=== PATIENT | male | born 1980 | race Caucasian/White ===

== ENCOUNTER 2021-10-10 14:27 | Emergency (ER) | payer OTHER, SELFPAY ==
--- NOTE | ~2021-10-10 | US_ITS ---
EXAMINATION: US VENOUS ULTRASOUND WITH DOPPLER LOWER EXTREMITY, LEFT CLINICAL INFORMATION: Pain. COMPARISON: None. TECHNIQUE: Ultrasound of the deep veins is performed from the hip to the calf with compression sonography and color and pulse Doppler assessment. Spectral analysis with color-flow imaging is performed. FINDINGS: There is occlusive thrombosis of the left popliteal vein which is noncompressible and lacks color flow on color Doppler. The visualized common femoral vein, superficial femoral vein, profunda femoral vein and the trifurcation region shows no evidence of deep venous thrombosis. There is no significant popliteal fossa cyst. There are a few prominent but benign-appearing left inguinal lymph nodes, which are likely reactive. US/US venous duplex LE LT IMPRESSION: Occlusive venous thrombosis in the left popliteal vein. This critical result was discussed with FERMIN Saucedo at 10/10/2021 8:40 PM and it was ascertained that the content and urgency of the report was understood at the time of direct communication.
[2021-10-10 15:14] VITALS: BP 148/80; PULSE 108; RESP 18; TEMP 36.8; O2SAT 97; BMI 33.0
--- NOTE | 2021-10-10 20:57 | ED_ITS ---
HPI - Extremity Problem General Chief complaint: Extremity Problem Stated complaint: BLOOD CLOTS L LEG Time Seen by Provider: 10/10/21 18:09 Source: patient Mode of arrival: ambulatory Limitations: no limitations History of Present Illness HPI Narrative: 41-year-old male presents for worsening left calf pain after being diagnosed with a DVT in his left calf 4 days ago. Patient has had 10 days of left calf pain and originally thought he just pulled a muscle. 6 days ago the pain worsened, and 4 days ago patient went to [facility]. There he was diagnosed with it DVT in his left popliteal vein, per patient's report, and put on Xarelto, 15 mg b.i.d.. He felt his left calf was getting better, but now feels since yesterday it has been more painful, red, swollen. It appears this clot is unprovoked, sister and aunt have a history of blood clots. Related Data Previous Rx's Medication Instructions Recorded oxycodone 5 mg capsule 5 mg PO TID PRN #14 cap 10/11/21 oxycodone 5 mg tablet 5 mg PO TID PRN #14 tab 10/11/21 Allergies Allergy/AdvReac Type Severity Reaction Status Date / Time No Known Allergies Allergy Verified 10/10/21 15:14 Review of Systems Constitutional: Constitutional: Denies body ache(s), Denies chills, Denies fatigue, Denies fever(s), Denies headache(s), Denies malaise and Denies weakness Eyes: Eyes: Denies diplopia ENT: Denies vertigo, Denies dizziness, Denies otalgia, Denies headache(s), Denies mouth pain, Denies post nasal drip, Denies sinus pain, Denies sinus pressure, Denies sore throat and Denies throat swelling Cardiovascular: Cardiovascular: Denies chest pain, Denies syncope, Reports leg edema, Denies lightheadedness, Denies Loss of Consciousness, Denies palpitations and Denies dyspnea Respiratory: Respiratory: Denies chest congestion, Denies cough and Denies dyspnea Gastrointestinal: Gastrointestinal: Denies abdominal pain, Denies hematochezia, Denies constipation, Denies diarrhea and Denies vomiting Integumentary/Breasts: Comments: Swelling redness warmth left calf Neurologic: Denies confusion, Denies vertigo, Denies dizziness, Denies syncope, Denies headache(s) and Denies weakness Psychiatric: Psychiatric: Denies anxiety, Denies confusion and Denies depression Endocrine: Endocrine: Denies fatigue and Denies palpitations Allergic/Immunologic: Allergic/Immunologic: Denies throat swelling PMFSH Social History Social History Alcohol intake: current Patient Tobacco Use Status: Never used Tobacco Use of substances other than those prescribed or required for medical reasons: No Advance Directives: No Physical Exam Vital Signs: Vital Signs: Last Vital Signs Temp 98.2 F 10/10/21 15:14 Pulse 108 H 10/10/21 15:14 Resp 18 10/10/21 15:14 BP 148/80 H 10/10/21 15:14 Pulse Ox 97 10/10/21 15:14 Body Mass Index 33.0 Const: General: No confusion Nutritional Appearance: well nourished Orientation/consciousness: No confusion Limitations: no limitations Eyes: Conjunctivae: conjunctivae normal Pupils: Equal, round and reactive pupils present EOM: EOMs intact bilaterally Neck: Neck: Yes full ROM, Yes no lymphadenopathy and Yes supple Resp: Effort & Inspection: normal respiratory effort and able to speak in complete sentences Auscultation: clear to auscultation bilaterally, no crackles, no rales, no rhonchi and no wheezes Cardio: Rate: regular rate Rhythm: regular rhythm Heart sounds: S1 normal heart sound present and S2 normal heart sound present GI: Inspection: Yes normal to inspection Palpation (GI): Soft to palpation, nontender, no guarding and not rigid Percussion: Yes normal to percussion Auscultation: normal bowel sounds Skin: Other: Swelling, redness, warmth, left calf Neuro: General: No confusion Cranial nerves: Yes Equal, round and reactive pupils present Extrem: Left lower extremity: full ROM, normal capillary refill and lower leg Details: erythema Location: of the proximal lower leg, tenderness Location: of the posterior calf and localized swelling Location: of the proximal lower leg and of the mid lower leg Psych: Appearance: grossly normal Affect: normal affect Attitude: cooperative Thought process: Normal thought process present Course Course Course Narrative: Ultrasound here today shows complete occlusion of left popliteal vein. Has spoke to Dr. Hu, vascular surgeon, to discuss if this is a failure of Xarelto after 4 days. He stated it is not a failure due to no access to previous ultrasound done at [facility]. He stated patient should stay on Xarelto, and elevate his leg, use compression stocking. I relayed this information to patient, patient has an appointment with his PCP in 5 days, told patient to keep this appointment, provided patient with pain medication. All questions of patient were answered to his satisfaction. Return precautions were given. Discharge Plan Discharge Clinical Impression: Deep vein thrombosis of lower extremity Qualifiers: Affected thrombotic vein of extremity: popliteal Chronicity: acute Laterality: left Qualified Code(s): I82.432 - Acute embolism and thrombosis of left popliteal vein Patient Disposition: Home, Self-Care Instructions: Deep Vein Thrombosis (ED) Additional Instructions: Please continue xeralto as prescribed. Please keep your appointment with your primary care provider. Please walk as much as possible, use compression stockings, and elevate your leg when you are not walking. He may take the compression stocking off at night. As we discussed, if the redness swelling and pain extends into her thigh be on your knee, or if you have shortness of breath chest pain, you must return to the emergency room immediately. Do not be afraid to treat your pain, Tylenol and oxycodone do not interact with xeralto; this is a very painful condition Prescriptions: New oxycodone 5 mg capsule 5 mg PO TID PRN (Reason: pain) Qty: 14 RF: 0 oxycodone 5 mg tablet 5 mg PO TID PRN (Reason: pain) Qty: 14 RF: 0
[2021-10-11] MEDS: oxyCODONE HCl Immed Release 5 MG TABLET PO (00:58)
--- NOTE | 2021-10-11 01:44 | PC.NURSE ---
The pt is discharged at this time. I assumed care of him at 1999 at which time he presented to [facility] stating he had been waiting for 7 hours (he states he believes it was thought that he had left the waiting room when, in fact, he was at ultrasound and per the pt he was taken out of the queue to get into the main department, hence the lengthy wait). On arrival to [facility] he is alert and oriented x 3, without chest pain or shortness of breath. He has no complaints with the exception of pain behind his left knee,. He states he was diagnosed with DVT on Thursday and today the pain that he has had since Thursday in his LLE is worsening. He waited patiently in the [facility] despite an 11 hour ER visit and was discharged at this time. He verbalized an understanding of all DC orders and ambulated out of the department independently and with steady gait.
== END 2021-10-11 01:57 | disposition home or self-care (01) ==
PROVIDERS: Emergency Provider Emergency Medicine
DX: I82.432 Acute embolism and thrombosis of left popliteal vein (principal); M79.662 Pain in left lower leg; Z86.718 Personal history of other venous thrombosis and embolism; Z79.01 Long term (current) use of anticoagulants
CPT/HCPCS: 93971; 99284

== ENCOUNTER → 2021-10-22 13:23 | Outpatient (BNVA) | payer OTHER, SELFPAY | PROVIDERS: PCP Nurse Practitioner Family; Visit Provider Surgery Vascular Surgery | DX: I82.432 Acute embolism and thrombosis of left popliteal vein (principal); Z79.01 Long term (current) use of anticoagulants | CPT/HCPCS: 99202 ==

== ENCOUNTER → 2022-07-17 10:55 | Outpatient (BNV) | payer OTHER, SELFPAY | PROVIDERS: PCP Nurse Practitioner Family; Visit Provider Internal Medicine Medical Oncology | DX: I82.402 Acute embolism and thrombosis of unspecified deep veins of left lower extremity (principal) | CPT/HCPCS: 99204; 99213 ==

== ENCOUNTER 2022-08-22 09:19 | Outpatient (REF) | payer OTHER, SELFPAY ==
--- NOTE | ~2022-08-22 | US_ITS ---
EXAMINATION: US VENOUS ULTRASOUND WITH DOPPLER LOWER EXTREMITY, LEFT CLINICAL INFORMATION: Left leg DVT, follow-up. COMPARISON: Left lower extremity deep venous thrombosis. TECHNIQUE: Ultrasound of the deep veins is performed from the hip to the calf with compression sonography and color and pulse Doppler assessment. Spectral analysis with color-flow imaging is performed. FINDINGS: The left popliteal vein shows intraluminal linear hypoechoic/echogenic foci. The left common femoral, femoral, femoral, femoral and calf veins are patent. No left popliteal cyst. The subcutaneous soft tissues are unremarkable. US/US venous duplex LE LT IMPRESSION: Significant interval decrease in thrombus burden at the level the left popliteal vein. Intraluminal linear foci suggest chronic residual thrombus however, correlation with physical exam is recommended. If the patient is acutely symptomatic, short-term repeat ultrasound is recommended as clinically indicated to better assess for more acute change.
== END 2022-08-22 09:20 | disposition home or self-care (01) ==
LOC: HO.US 09:19
PROVIDERS: Visit Provider Internal Medicine Medical Oncology
DX: I82.402 Acute embolism and thrombosis of unspecified deep veins of left lower extremity (principal)
CPT/HCPCS: 93971

== ENCOUNTER 2023-07-05 13:19 | Emergency (ER) | payer OTHER, SELFPAY ==
--- NOTE | ~2023-07-05 | US_ITS ---
EXAMINATION: US RETROPERITONEAL LIMITED (RENAL ONLY) CLINICAL INFORMATION: Left flank pain. COMPARISON: None available. TECHNIQUE: Grayscale and color imaging of the kidneys FINDINGS: RIGHT KIDNEY: 10.7 x 4.3 x 5.7 cm (SAG x AP x TRV). The kidney is normal in size, contour, and echogenicity. Renal cortical thickness is normal. No calculi or focal parenchymal lesions. No hydronephrosis. LEFT KIDNEY: 11 x 4.4 x 4.8 cm (SAG x AP x TRV). The kidney is normal in size, contour, and echogenicity. Renal cortical thickness is normal. No calculi or focal parenchymal lesions. No hydronephrosis. US/US renal BI IMPRESSION: Normal renal ultrasound..
[2023-07-05 13:47] VITALS: BP 157/88; PULSE 91; RESP 16; TEMP 36.7; O2SAT 95; BMI 31.9
--- NOTE | 2023-07-05 13:49 | ED.GENADULT ---
HPI - General Adult General Chief complaint: Abdominal Pain Stated complaint: Abd pain? Time Seen by Provider: 07/05/23 15:38 Source: patient and family Mode of arrival: ambulatory Limitations: no limitations History of Present Illness HPI narrative: Patient is a 43-year-old male with history of DVTs, currently on Xarelto presenting to the emergency department with complaint of left flank pain since Thursday or Thursday which has now began to radiate around to left lower quadrant of abdomen. Rates pain at 6 or 7/10, is intermittent. He denies any nausea, vomiting, diarrhea, constipation. He denies any dysuria, hematuria or other urinary symptoms. He denies any fevers. He denies any bright red blood in stool or dark, tarry stool. He denies heavy lifting, fall, or other trauma. He denies any saddle anesthesia or bowel or bladder incontinence. MD complaint: left flank pain Onset (ago): day(s) Location: back and abdomen Radiation: abdomen Severity: moderate Severity scale (1-10): 7 Quality: sharp Pain Consistency: intermittent Associated symptoms: denies other symptoms Treatments prior to arrival: none Related Data Home Medications Medication Instructions Recorded Confirmed ruxolitinib 1.5 % topical cream 5 appl topical DAILY 03/27/23 03/27/23 (Opzelura) Previous Rx's Medication Instructions Recorded rivaroxaban 20 mg tablet 20 mg PO DAILY #30 tabs 07/17/22 rivaroxaban 20 mg tablet (Xarelto) 20 mg PO DAILY #90 tabs 11/27/22 rivaroxaban 10 mg tablet 10 mg PO DAILY #90 tabs 04/03/23 cyclobenzaprine 5 mg tablet 5 mg PO TID PRN muscle spasm #12 07/05/23 tabs lidocaine 5 % topical patch 1 patch topical DAILY #15 ea 07/05/23 Allergies Allergy/AdvReac Type Severity Reaction Status Date / Time ibuprofen Allergy Unknown Verified 07/05/23 15:38 Review of Systems Review of Systems: As per HPI. Yes all other systems are reviewed and are negative Constitutional: Constitutional: Reports as per HPI [facility] Past Medical History Surgical History History of hernia surgery Family History Family History Father Lung cancer Social History Social History Household Members: Spouse Housing: Apartment Are you a primary nurse healthcare manager to a significant other at home: No Do you presently have visiting nurse or other home services: No Alcohol intake: current Patient Tobacco Use Status: Former Tobacco user Quit Date: 03/2022 Second Hand Smoke Exposure: No Advance Directives: No Advance Directives Information Provided: Yes service: No Current occupational status: employed Physical Exam ED Vital Signs: Vital Signs - 24 hr 07/05/23 13:47 Temperature 98.0 F Pulse Rate 91 Respiratory Rate 16 Blood Pressure 157/88 H Pulse Oximetry 95 Oxygen Delivery Method Room Air BMI result Body Mass Index 31.9 Vital signs have been reviewed and appear to be correct. Blood pressure elevated. Heart rate normal. Respiratory rate normal. Temperature normal. Oxygen saturation normal. Const General: cooperative, healthy appearing and no acute distress Orientation/consciousness: oriented to person, oriented to place, oriented to time and patient oriented x3 Limitations: no limitations HENMT Head: Yes normocephalic and Yes atraumatic Ears: external ears normal General nose exam: Normal external nose present Face and sinus: Yes face symmetric Mouth: oropharynx normal and moist mucous membranes Throat: Yes uvula midline Eyes Pupils: Equal, round and reactive pupils present Neck Neck: Yes normal visual inspection and Yes supple Resp Effort & Inspection: normal respiratory effort and able to speak in complete sentences Auscultation: clear to auscultation bilaterally Cardio Rate: regular rate Rhythm: regular rhythm Heart sounds: S1 normal heart sound present and S2 normal heart sound present GI Inspection: Yes normal to inspection Palpation (GI): Soft to palpation, nontender, no guarding and No Rebound tenderness present Auscultation: normoactive bowel sounds Other: no flank ecchymosis General: Yes no CVA tenderness Back/Spine/Pelvis Back: no CVA tenderness Skin General skin exam: elasticity normal and turgor normal Neuro General: oriented to person, oriented to place, oriented to time, patient oriented x3, moves all extremities, no focal motor deficits and CN's II-XI intact bilaterally Cranial nerves: Yes Equal, round and reactive pupils present Cognition (Neuro): normal cognition Extrem General: Yes full ROM, Yes no pedal edema and Yes no calf tenderness Psych Mental Status: mental status grossly normal Affect: normal affect Thought process: Normal thought process present Course Course Course Narrative: RME: 43 yold male presents to the ED for left flank pain and left lower quadrant abdominal pain for the past 3 days without any symptoms. labs ordered Medical Decision Making Medical Decision Making [facility] Narrative: Patient is a 43-year-old male with history of DVTs, currently on Xarelto presenting to the emergency department with complaint of left flank pain since Thursday or Thursday which has now began to radiate around to left lower quadrant of abdomen. On exam patient is awake, A+Ox3, VS WNL, afebrile, normal neurological exam without focal deficits, abdomen soft and nontender, normoactive bowel sounds, no palpable hernia, no CVA tenderness, no flank ecchymosis. Given reported symptoms and physical exam findings, initial differential includes UTI/pyelo, renal colic, muscle strain. No red flag findings on exam concerning for cauda equina or spinal epidural abscess. Labs notable for no leukocytosis, no evidence of anemia, electrolytes WNL, no blood in urine. D-dimer within normal limits, feel blood clot as cause of symptoms is unlikely. U/S notable for normal renal ultrasound. My interpretation is in agreement with the radiologist's interpretation. Feel symptoms are likely related to lumbar strain at this time. Will discharge patient home with prescription for cyclobenzaprine, instructed him to follow-up with his primary care provider this week. Return precautions discussed at bedside. Advised patient he can alternate Tylenol and ibuprofen. Patient verbalized understanding of and agreement with plan. Differential Diagnosis Differential Diagnoses: The differential diagnosis associated with the presentation includes As per MDM. Admission/Observation Consideration of admission/observation: Escalation of care including admission/observation considered Lab Data [facility] Lab Attestation statement: I reviewed the patient's lab results. As per [facility]. 07/05/23 15:14 07/05/23 14:41 Labs: Lab Results 07/05/23 07/05/23 07/05/23 Range/Units 14:41 14:41 14:41 WBC (4.8-10.8) X10*3/uL RBC (4.60-5.80) X10*6/uL Hgb (14.0-18.0) g/dl Hct (42.0-52.0) % MCV (80.0-98.0) fL MCH (27.0-33.0) pg MCHC (31.0-36.0) g/dl RDW (11.0-16.0) % Plt Count (160-400) X10*3/uL MPV (9.4-12.4) fL Immature Gran % (Auto) (0.0-0.4) % Neut % (Auto) (45-73) % Lymph % (Auto) (20-40) % Caroline % (Auto) (2-11) % Eos % (Auto) (0-4) % Baso % (Auto) (0-2) % Lymph # (Auto) (1.2-4.9) X10*3/uL Caroline # (Auto) (0.1-1.2) X10*3/uL Eos # (Auto) (0.0-0.4) X10*3/uL Baso # (Auto) (0.0-0.2) X10*3/uL Abs Immat Gran (auto) (0.00-0.03) X10*3/uL Absolute Neuts (auto) (2.0-8.3) x10*3/uL Absolute Nucleated RBC (0.0-0.012) X10*3/uL Nucleated RBC % (auto) (0.0-0.2) /100WBC PT 13.5 H (11.1-13.3) SEC INR 1.1 (0.9-1.1) APTT 36.2 (26.0-36.4) SEC D-Dimer High Sensitivty 188 NG/ML Sodium 142 (135-145) mmol/L Potassium 4.0 (3.3-5.1) mmol/L Chloride 107 (96-108) mmol/L Carbon Dioxide 26 (22-29) mmol/L Anion Gap 13 (12-20) BUN 14 (9-16) mg/dL Creatinine 1.03 (0.5-1.4) mg/dL Estim Creat Clear Calc 110.1 Estimated GFR > 60 Random Glucose 85 (60-115) mg/dL Calcium 9.6 (8.4-10.2) mg/dL Total Bilirubin 0.5 (0.0-1.0) mg/dL AST 13 (5-37) U/L ALT 13 (0-40) U/L Alkaline Phosphatase 44 (39-117) U/L Total Protein 7.4 (6.5-8.0) g/dL Albumin 4.5 (3.5-5.0) g/dL Urine Color Yellow Urine Appearance Clear Urine pH 5.5 (5.0-9.0) Ur Specific [place] 1.025 (1.005-1.025) Urine Protein Negative (Neg-Trace) mg/dL Urine Glucose (UA) Negative (Negative) mg/dL Urine Ketones Trace (Negative) mg/dL Urine Blood Negative (Negative) Urine Nitrite Negative (Negative) Ur Leukocyte Esterase Negative (Negative) 07/05/23 Range/Units 15:14 WBC 9.6 (4.8-10.8) X10*3/uL RBC 5.13 (4.60-5.80) X10*6/uL Hgb 15.2 (14.0-18.0) g/dl Hct 45.2 (42.0-52.0) % MCV 88.1 (80.0-98.0) fL MCH 29.6 (27.0-33.0) pg MCHC 33.6 (31.0-36.0) g/dl RDW 13.0 (11.0-16.0) % Plt Count 236 (160-400) X10*3/uL MPV 9.8 (9.4-12.4) fL Immature Gran % (Auto) 0.2 (0.0-0.4) % Neut % (Auto) 57.6 (45-73) % Lymph % (Auto) 30.2 (20-40) % Caroline % (Auto) 9.7 (2-11) % Eos % (Auto) 1.7 (0-4) % Baso % (Auto) 0.6 (0-2) % Lymph # (Auto) 2.9 (1.2-4.9) X10*3/uL Caroline # (Auto) 0.9 (0.1-1.2) X10*3/uL Eos # (Auto) 0.2 (0.0-0.4) X10*3/uL Baso # (Auto) 0.1 (0.0-0.2) X10*3/uL Abs Immat Gran (auto) 0.02 (0.00-0.03) X10*3/uL Absolute Neuts (auto) 5.5 (2.0-8.3) x10*3/uL Absolute Nucleated RBC 0.000 (0.0-0.012) X10*3/uL Nucleated RBC % (auto) 0.0 (0.0-0.2) /100WBC PT (11.1-13.3) SEC INR (0.9-1.1) APTT (26.0-36.4) SEC D-Dimer High Sensitivty NG/ML Sodium (135-145) mmol/L Potassium (3.3-5.1) mmol/L Chloride (96-108) mmol/L Carbon Dioxide (22-29) mmol/L Anion Gap (12-20) BUN (9-16) mg/dL Creatinine (0.5-1.4) mg/dL Estim Creat Clear Calc Estimated GFR Random Glucose (60-115) mg/dL Calcium (8.4-10.2) mg/dL Total Bilirubin (0.0-1.0) mg/dL AST (5-37) U/L ALT (0-40) U/L Alkaline Phosphatase (39-117) U/L Total Protein (6.5-8.0) g/dL Albumin (3.5-5.0) g/dL Urine Color Urine Appearance Urine pH (5.0-9.0) Ur Specific [place] (1.005-1.025) Urine Protein (Neg-Trace) mg/dL Urine Glucose (UA) (Negative) mg/dL Urine Ketones (Negative) mg/dL Urine Blood (Negative) Urine Nitrite (Negative) Ur Leukocyte Esterase (Negative) Independent Interpretation I performed an independent interpretation of an: Ultrasound Interpretation: Normal renal ultrasound Radiology Impression Discussion of test interpretation with radiology: I have reviewed the radiologist's reading. Radiologist Impression: US/US renal BI IMPRESSION: Normal renal ultrasound.. Independent Historian Clinical information obtained from an independent historian. History obtained from or confirmed by: Spouse External Record Review External record reviewed: Inpatient record, Office record and Outpatient record Tests considered The following testing was considered but not selected: Considered CT abdomen pelvis, however, abdomen is soft and nontender in patient has no CVA tenderness. Prescription Management I considered prescription management with: Other (Cyclobenzaprine) Discharge Plan Discharge Clinical Impression: Strain of lumbar paraspinous muscle Patient Disposition: Home, Self-Care Instructions: Muscle Strain (DC), Low Back Strain (ED), Acute Low Back Pain (ED), Lower Back Exercises (ED) Additional Instructions: You were evaluated in the emergency department today for back pain. Your evaluation did not show signs of medical conditions requiring emergent intervention at this time. We recommended that you use ibuprofen or Tylenol per package directions every 6 hours as needed for pain. If necessary, you can alternate these medications so that you take one medication every 3 hours. For instance, at noon take ibuprofen, then at 3:00 p.m. take Tylenol, then at 6:00 p.m. take ibuprofen. You have been prescribed a muscle relaxer which you may take every 8 hours as needed for spasms. You have been prescribed 5% topical lidocaine patches which you can wear for up to 12 hours in a 24 hour period. Do not apply heat directly over the patches. Please schedule an appointment for follow-up with your primary care physician this week for further evaluation of your symptoms. Return to the emergency department if you experience worsening back pain, difficulty walking, fevers, numbness, tingling, incontinence, groin numbness or tingling, or any other concerning symptoms. Prescriptions: New cyclobenzaprine 5 mg tablet 5 mg PO TID PRN (Reason: muscle spasm) Qty: 12 0RF lidocaine 5 % adhesive patch,medicated 1 patch topical DAILY Qty: 15 0RF Rx Instructions: leave on most painful area for up to 12 hrs No Action rivaroxaban 20 mg Tablet 20 mg PO DAILY Qty: 30 4RF Rx Instructions: must administer with evening meal Xarelto 20 mg Tablet 20 mg PO DAILY Qty: 90 3RF Rx Instructions: must administer with evening meal Opzelura 1.5 % Cream 5 appl TOPICAL DAILY rivaroxaban 10 mg Tablet 10 mg PO DAILY Qty: 90 4RF Rx Instructions: for 35 days Interventions: ED Discharge Assessment Last Done: 07/05/23 17:43 Discharge Date/Time: 07/05/23 17:43
[2023-07-05 14:52] LABS: Appearance Urine Clear; Color Urine Yellow; Glucose Urine UA Negative (Negative); Leukocyte Esterase Urine Negative (Negative); Nitrite Urine Negative (Negative); PH 5.5 (5.0-9.0); Specific Gravity - Urine 1.025 (1.005-1.025); Urine Blood Negative (Negative); Urine Ketones Trace mg/dL (Negative); Urine Protein Negative (Neg-Trace)
[2023-07-05 14:59] LABS: INTERNATIONAL NORM RATIO 1.1 (0.9-1.1); Prothrombin Time 13.5 SEC (11.1-13.3)
[2023-07-05 15:01] LABS: Partial Thromboplastin Time 36.2 SEC (26.0-36.4)
[2023-07-05 15:10] LABS: Alanine Aminotransferase 13 U/L (0-40); Albumin Level 4.5 g/dL (3.5-5.0); Alkaline Phosphatase 44 U/L (39-117); Anion Gap 13 (12-20); Aspartate Amino Transferase 13 U/L (5-37); Bilirubin Total 0.5 mg/dL (0.0-1.0); Blood Urea Nitrogen 14 mg/dL (9-16); Calcium 9.6 mg/dL (8.4-10.2); Carbon Dioxide 26 mmol/L (22-29); Chloride 107 mmol/L (96-108); Creatinine Clr Calc Pharmacy 110.1; Estimated Glomerular Filt Rate > 60; Glucose Random 85 mg/dL (60-115); Sodium 142 mmol/L (135-145); Total Protein 7.4 g/dL (6.5-8.0)
[2023-07-05 15:19] LABS: MANUAL DIFF FLAG NO
[2023-07-05 15:23] LABS: Basophils Absolute Auto 0.1 X10*3/uL (0.0-0.2); Basophils Percent Auto 0.6 % (0-2); Eosinophils Absolute Auto 0.2 X10*3/uL (0.0-0.4); Eosinophils Percent Auto 1.7 % (0-4); Hematocrit 45.2 % (42.0-52.0); Hemoglobin 15.2 g/dl (14.0-18.0); Imm Gran Abs Auto 0.02 X10*3/uL (0.00-0.03); Imm Gran Pct Auto 0.2 % (0.0-0.4); Lymphocytes Absolute Auto 2.9 X10*3/uL (1.2-4.9); Lymphocytes Percent Auto 30.2 % (20-40); Mean Corpuscular HGB Conc 33.6 g/dl (31.0-36.0); Mean Corpuscular Hemoglobin 29.6 pg (27.0-33.0); Mean Corpuscular Volume 88.1 fL (80.0-98.0); Mean Platelet Volume 9.8 fL (9.4-12.4); Monocytes Absolute Auto 0.9 X10*3/uL (0.1-1.2); Monocytes Percent Auto 9.7 % (2-11); Neutrophils Absolute Auto 5.5 x10*3/uL (2.0-8.3); Neutrophils Percent Auto 57.6 % (45-73); Platelet Count 236 X10*3/uL (160-400); Red Blood Count 5.13 X10*6/uL (4.60-5.80); White Blood Count 9.6 X10*3/uL (4.8-10.8)
[2023-07-05 15:57] LABS: D Dimer High Sensitivity 188 NG/ML
== END 2023-07-05 17:43 | disposition home or self-care (01) ==
PROVIDERS: Physician Assistant; Registered Nurse Emergency; Emergency Provider Emergency Medicine Emergency Medical Services; PCP Internal Medicine
DX: S39.012A Strain of muscle, fascia and tendon of lower back, initial encounter (principal); R10.32 Left lower quadrant pain; X58.XXXA Exposure to other specified factors, initial encounter; Y93.9 Activity, unspecified; Y92.9 Unspecified place or not applicable; Y99.9 Unspecified external cause status; Z86.718 Personal history of other venous thrombosis and embolism; Z79.01 Long term (current) use of anticoagulants; Z87.891 Personal history of nicotine dependence; Z79.899 Other long term (current) drug therapy
CPT/HCPCS: 36415; 76775; 80053; 81003; 85025; 85379; 85610; 85730; 99282; 99284

== ENCOUNTER 2024-10-14 12:51 | Outpatient (REF) | payer OTHER, SELFPAY ==
--- NOTE | ~2024-10-14 | US_ITS ---
EXAMINATION: US TRIPLEX LOWER EXTREMITY, LEFT CLINICAL INFORMATION: Chronic deep venous thrombosis COMPARISON: 08/22/2022 and 10/10/2021 TECHNIQUE: Color-flow triplex imaging with spectral analysis and compression Doppler were performed on the left lower extremity. FINDINGS: Chronic wall adherent postthrombotic changes again seen in the left popliteal vein in the distal most superficial femoral vein. There is recanalized patent color-flow with normal duplex venous waveforms. The common femoral vein, great saphenous vein, profunda femoral vein and proximal to mid segments of the superficial femoral vein demonstrate normal compressibility, color-flow and duplex venous waveforms. The posterior tibial and peroneal veins in the calf are patent There is no Munguia's cyst. US/US venous duplex LE LT IMPRESSION: Chronic postthrombotic changes in the left popliteal vein and distal most superficial femoral vein. No acute deep venous thrombosis. Electronically signed by: Tl Alicea MD 10/14/2024 01:33 PM EST
== END 2024-10-14 12:52 | disposition home or self-care (01) ==
LOC: HO.HMGCX 12:51
PROVIDERS: PCP Internal Medicine; Visit Provider Internal Medicine Medical Oncology
DX: I82.402 Acute embolism and thrombosis of unspecified deep veins of left lower extremity (principal)
CPT/HCPCS: 93971

== ENCOUNTER 2025-10-27 15:48 | Emergency (ER) | payer BC, SELFPAY ==
--- NOTE | ~2025-10-27 | XR_ITS ---
CLINICAL HISTORY: chest pain 2 view chest x-ray Comparison: None provided Findings: No consolidation or effusion. Normal size heart. No acute fracture. IMPRESSION: 1. No acute findings. This document has been electronically signed by: Alma Gusman MD on 10/27/2025 19:08:45
[2025-10-27 15:59] VITALS: BP 181/71; PULSE 102; RESP 18; TEMP 36.4; O2SAT 95; BMI 32.8
--- NOTE | 2025-10-27 16:00 | ED_ITS ---
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 Patient states that he was having some central chest pain after having a recent upper respiratory infection for a week and given his history of blood clot, he was concerned. Patient states that he is not having any shortness of breath. Patient states that he is taking his Xarelto as prescribed. Patient denies any other complaints at this time. Relieving factors: none Exacerbating factors: none Associated symptoms: chest pain Treatments prior to arrival: none Related Data Previous Rx's ?Medication ?Instructions ?Recorded rivaroxaban 10 mg tablet (Xarelto) 10 mg PO DAILY #30 tabs 10/25/25 Allergies Allergy/AdvReac Type Severity Reaction Status Date / Time ibuprofen Allergy Unknown Verified 10/27/25 16:00 Review of Systems 2 Constitutional: Constitutional: Reports as per HPI Eyes: Eyes: Reports as per HPI ENT: Reports as per HPI Cardiovascular: Cardiovascular: Reports as per HPI Respiratory: Respiratory: Reports as per HPI Gastrointestinal: Gastrointestinal: Reports as per HPI Genitourinary: Genitourinary: Reports as per HPI Musculoskeletal: Musculoskeletal: Reports as per HPI Integumentary/Breasts: Skin/Breast: Reports as per HPI Neurologic: Reports as per HPI Psychiatric: Psychiatric: Reports as per HPI Endocrine: Endocrine: Reports as per HPI Hematologic/Lymphatic: Hematologic/Lymphatic: Reports as per HPI Allergic/Immunologic: Allergic/Immunologic: Reports as per HPI PMF Past Medical History Attestation statement: The following information was validated with the patient. Source: old records reviewed and nursing notes reviewed Surgical History History of hernia surgery Family History Family History Father Lung cancer Social History Social History Household Members: Spouse Housing: Apartment Are you a primary personal care aid to a significant other at home: No Do you presently have visiting nurse or other home services: No Alcohol intake: current Patient Tobacco Use Status: Former Tobacco user Second Hand Smoke Exposure: No Advance Directives: No Advance Directives Information Provided: No Do you have a plan to hurt others: No Plan service: No Current occupational status: employed Physical Exam ED Vital Signs: Vital Signs - 24 hr 10/27/25 15:59 10/27/25 19:35 Temperature 97.6 F 97.6 F Pulse Rate 102 H 102 H Respiratory Rate 18 18 Blood Pressure 181/71 H 181/71 H Pulse Oximetry 95 95 Oxygen Delivery Method Room Air Room Air BMI result Body Mass Index 32.8 Const General: cooperative, no acute distress, alert and awake Nutritional Appearance: well nourished Orientation/consciousness: patient oriented x3 HENMT Head: Yes normal to inspection and Yes atraumatic Ears: hearing grossly normal bilaterally and external ears normal General nose exam: Normal external nose present, no nasal discharge noted and no epistaxis Face and sinus: Yes normal facial exam, No abrasion and No laceration Mouth: Normal oral and palatal mucosa present, no drooling and no muffled voice Eyes General: appearance normal, both eyes and all related structures Periorbital: periorbital findings normal Eyelids: Yes eyelids normal Conjunctivae: conjunctivae normal Pupils: Equal, round and reactive pupils present EOM: EOMs intact bilaterally Neck Neck: Yes normal visual inspection and Yes full ROM Resp Effort & Inspection: normal respiratory effort and able to speak in complete sentences Neuro General: patient oriented x3, moves all extremities and CN's II-XI intact bilaterally Cranial nerves: Yes Equal, round and reactive pupils present Cognition (Neuro): normal cognition Extrem General: Yes normal to inspection, Yes full ROM and Yes capillary refill normal Psych Appearance: grossly normal Mental Status: mental status grossly normal Affect: normal affect Attitude: cooperative Thought process: Normal thought process present Thought content: Normal thought content present Insight: Good insight present (Psych) Course Course Course Narrative: Rapid medical examination performed in triage by Maday Fabian PA-C: Patient is a 45 year old assigned male at presenting to the emergency department with chest pain. Patient states that he is on Xarelto 10mg for previous DVT and he has been taking it like he's supposed to. Detailed physical exam and review of systems are deferred to the fashion photographer. EKG, labs, imaging, swabs ordered. Patient placed back in the waiting room pending room availability and results. 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 Patient's physical exam was as noted in the physical exam portion of this note. Patient's blood work was unremarkable, including a normal troponin and d dimer. Patient's EKG showed no obvious evidence of arrhythmia, ischemia, or infarct. Patient's chest x-ray showed no acute process. I explained my physical exam findings as well as all test results to the patient. I answered all questions asked by the patient. I stressed the importance of the patient taking his medication as directed (either prescribed or as the over the counter packaging recommends). I stressed the importance of the patient following up with his primary care provider. I stressed the importance of the patient returning to the emergency department immediately if his symptoms were to worsen or if he were to develop any dizziness, shortness of breath, difficulty breathing, chest pain, blurry vision, loss of vision, nausea, vomiting, abdominal pain, fever, chills, back pain, or any other complaints. Patient verbalized agreement and understanding with this treatment plan and discharge. Differential Diagnosis Differential Diagnoses: The differential diagnosis associated with the presentation includes Atypical chest pain Anxiety Chest wall pain GERD Costochondritis Pleurisy PNA PE Admission/Observation Consideration of admission/observation: Escalation of care including admission/observation considered Patient would have been admitted to the hospital had his work up had any findings where hospital admission was appropriate and his clinical presentation warranted hospital admission. Lab Data [facility] Lab Attestation statement: I reviewed the patient's lab results. My interpretation of these results are in the MDM Rationale portion of this note. 10/27/25 16:22 10/27/25 16:22 Labs: Lab Results 10/27/25 Range/Units 16:22 WBC 11.9 H (4.8-10.8) X10*3/uL RBC 4.82 (4.60-5.80) X10*6/uL Hgb 14.7 (14.0-18.0) g/dl Hct 43.9 (42.0-52.0) % MCV 91.1 (80.0-98.0) fL MCH 30.5 (27.0-33.0) pg MCHC 33.5 (31.0-36.0) g/dl RDW 12.5 (11.0-16.0) % Plt Count 244 (160-400) X10*3/uL MPV 9.5 (9.4-12.4) fL Immature Gran % (Auto) 0.5 H (0.0-0.4) % Neut % (Auto) 60.2 (45-73) % Lymph % (Auto) 30.2 (20-40) % [place] % (Auto) 7.0 (2-11) % Eos % (Auto) 1.4 (0-4) % Baso % (Auto) 0.7 (0-2) % Lymph # (Auto) 3.6 (1.2-4.9) X10*3/uL [place] # (Auto) 0.8 (0.1-1.2) X10*3/uL Eos # (Auto) 0.2 (0.0-0.4) X10*3/uL Baso # (Auto) 0.1 (0.0-0.2) X10*3/uL Abs Immat Gran (auto) 0.06 H (0.00-0.03) X10*3/uL Absolute Neuts (auto) 7.2 (2.0-8.3) x10*3/uL Absolute Nucleated RBC 0.000 (0.0-0.012) X10*3/uL Nucleated RBC % (auto) 0.0 (0.0-0.2) /100WBC PT 12.4 (11.2-13.5) SEC INR 1.0 (0.9-1.1) D-Dimer High Sensitivty < 150 NG/ML Sodium 140 (135-145) mmol/L Potassium 4.1 (3.3-5.1) mmol/L Chloride 103 (96-108) mmol/L Carbon Dioxide 28 (22-29) mmol/L Anion Gap 13 (12-20) BUN 16 (9-16) mg/dL Creatinine 1.10 (0.5-1.4) mg/dL Estim Creat Clear Calc 102.2 Estimated GFR > 60 Random Glucose 93 (60-115) mg/dL Calcium 9.4 (8.4-10.2) mg/dL Magnesium 1.9 (1.6-2.6) mg/dL Total Bilirubin 0.3 (0.0-1.0) mg/dL AST 21 (5-37) U/L ALT 22 (0-40) U/L Alkaline Phosphatase 52 (39-117) U/L Troponin I High Sens < 2.7 (<3.5-35.0) ng/L Total Protein 7.7 (6.5-8.0) g/dL Albumin 5.0 (3.5-5.0) g/dL Influenza Type A (PCR) NEGATIVE (Negative) Influenza Type B (PCR) NEGATIVE (Negative) RSV RNA Qual (PCR) NEGATIVE (Negative) SARS-CoV-2 RNA (RT-PCR) NEGATIVE (Negative) Independent Interpretation I performed an independent interpretation of an: EKG and Plain X-Ray Interpretation: My interpretation is in agreement with the radiologist's impression of this imaging study as written below. Reason for Exam: chest pain CLINICAL HISTORY: chest pain 2 view chest x-ray Comparison: None provided Findings: No consolidation or effusion. Normal size heart. No acute fracture. IMPRESSION: 1. No acute findings. This document has been electronically signed by: Alma Gusman MD on 10/27/2025 19:08:45 Dictated By: Alma Gusman MD Signed By: Electronically signed by Alma Gusman MD 10/27/[id number] I independently interpreted this EKG and am in agreement with the below findings: Vent. Rate: 79 BPM Atrial Rate: 79 BPM P-R Int: 218 ms QRS Dur: 96 ms QT Int: 380 ms P-R-T Axes: 54 50 43 degrees QTcB Int: 435 ms Normal Sinus rhythm No previous ECGs available DD/ 1608 Radiology Impression Discussion of test interpretation with radiology: I have reviewed the radiologist's reading. Tests considered The following testing was considered but not selected: I considered obtaining a CT scan of the patient's chest with IV contrast (PE protocol) however, the patient's current clinical presentation (no hypoxia), and work up (negative troponin + negative d dimer), did not warrant it at this time. Discharge Plan Discharge Clinical Impression: Atypical chest pain Patient Disposition: Home, Self-Care Instructions: Noncardiac Chest Pain (ED) Additional Instructions: Your work up today was reassuring there is no EMERGENT cause for your symptoms. Your complete blood count, comprehensive metabolic panel, d-dimer, EKG, and chest x-ray were all normal. IF you are prescribed home medications and/or you are taking over the counter medications at home - it is very important you continue to do so as prescribed / directed unless told otherwise by a healthcare provider. Follow up with your primary care provider. Do your best to stay well hydrated and rest. Return to the emergency department immediately if your symptoms worsen or if you develop any numbness, tingling, dizziness, shortness of breath, difficulty breathing, chest pain, blurry vision, loss of vision, nausea, vomiting, abdominal pain, fever, chills, back pain, or any other complaints. Please see the information below about our Patient Portal. If you are not yet enrolled in the [facility] Patient Portal, you will receive an enrollment email invitation following your visit to any [facility] care setting. You may also self-enroll in the Patient Portal by visiting our website: [email or web address] The following information is required to access the Patient Portal: - Your [facility] Medical Record Number - Your personal home email address (must match what is in your electronic medical record, Registration staff can assist with this) - Name - Date of Capabilities of the Patient Portal: - Message some providers - View upcoming appointments - Access your health summary, medical history, and visit history - View current conditions and allergies - View procedure and lab results - View your medications, including guidelines, side effects, and precautions - Complete pre-appointment questionnaires requested by your provider - Ready summary reports of your office visits and procedures To access the Patient Portal Mobile Jaden, follow these directions: - Search [employer] in the Jaden Store or Google Play Store - Download the Jaden - Search for [facility] - Enter your login/password Prescriptions: No Action Xarelto 10 mg Tablet 10 mg PO DAILY Qty: 30 0RF Referrals: Etelvina Moreno NP [Primary Care Provider, Medical] Interventions: ED Discharge Assessment Last Done: 10/27/25 19:35 Discharge Date/Time: 10/27/25 19:35 Print Language: [place] Citizen
--- NOTE | 2025-10-27 16:02 | ECG_ITS ---
Test Reason : cp Blood Pressure : */* mmHG Vent. Rate : 79 BPM Atrial Rate : 79 BPM P-R Int : 218 ms QRS Dur : 96 ms QT Int : 380 ms P-R-T Axes : 54 50 43 degrees QTcB Int : 435 ms Sinus rhythm with 1st degree A-V block Otherwise normal ECG No previous ECGs available Referred By: Maday Fabian Electronically Signed By: MARY JANE PERALES
[2025-10-27 16:29] LABS: MANUAL DIFF FLAG NO
[2025-10-27 16:30] LABS: Hematocrit 43.9 % (42.0-52.0); Hemoglobin 14.7 g/dl (14.0-18.0); Imm Gran Abs Auto 0.06 X10*3/uL (0.00-0.03); Imm Gran Pct Auto 0.5 % (0.0-0.4); Lymphocytes Absolute Auto 3.6 X10*3/uL (1.2-4.9); Mean Corpuscular HGB Conc 33.5 g/dl (31.0-36.0); Mean Corpuscular Hemoglobin 30.5 pg (27.0-33.0); Mean Corpuscular Volume 91.1 fL (80.0-98.0); NRBC Abs Auto 0.000 X10*3/uL (0.0-0.012); NRBC Pct Auto 0.0 /100WBC (0.0-0.2); Platelet Count 244 X10*3/uL (160-400); Red Blood Count 4.82 X10*6/uL (4.60-5.80); White Blood Count 11.9 X10*3/uL (4.8-10.8)
[2025-10-27 16:37] LABS: INTERNATIONAL NORM RATIO 1.0 (0.9-1.1); Prothrombin Time 12.4 SEC (11.2-13.5)
[2025-10-27 16:41] LABS: D Dimer High Sensitivity < 150 NG/ML
[2025-10-27 16:43] LABS: Alanine Aminotransferase 22 U/L (0-40); Albumin Level 5.0 g/dL (3.5-5.0); Alkaline Phosphatase 52 U/L (39-117); Anion Gap 13 (12-20); Aspartate Amino Transferase 21 U/L (5-37); Blood Urea Nitrogen 16 mg/dL (9-16); Calcium 9.4 mg/dL (8.4-10.2); Carbon Dioxide 28 mmol/L (22-29); Chloride 103 mmol/L (96-108); Creatinine Clr Calc Pharmacy 102.2; Estimated Glomerular Filt Rate > 60; Magnesium 1.9 mg/dL (1.6-2.6); Potassium 4.1 mmol/L (3.3-5.1); Sodium 140 mmol/L (135-145); Total Protein 7.7 g/dL (6.5-8.0)
[2025-10-27 17:13] LABS: Troponin-I High Sensitivity < 2.7 ng/L (<3.5-35.0)
[2025-10-27 17:21] LABS: Resp Syncy Virus RNA Qual PCR NEGATIVE (Negative); SARS COV2 PCR INHOUSE NEGATIVE (Negative)
[2025-10-27 19:35] VITALS: BP 181/71; PULSE 102; RESP 18; TEMP 36.4; O2SAT 95
--- OUTSIDE RECORDS SUMMARY | 2025-10-27 20:06 | XMS_ITS ---
Author Name [facility] Organization Unknown Care Team Organization Name Specialty Phone Email Start Date End Da te [facility] Areli [facility] 05/28/[address] [facility] 05/01/2023 07/11/2024
== END 2025-10-27 19:35 | disposition home or self-care (01) ==
PROVIDERS: Physician Assistant Medical; Emergency Provider Student in an Organized Health Care Education/Training Program; PCP Nurse Practitioner Family
DX: R07.89 Other chest pain (principal); Z03.818 Encounter for observation for suspected exposure to other biological agents ruled out; Z86.718 Personal history of other venous thrombosis and embolism; Z79.01 Long term (current) use of anticoagulants; Z79.899 Other long term (current) drug therapy; Z87.891 Personal history of nicotine dependence
CPT/HCPCS: 36415; 71046; 80053; 83735; 84484; 85025; 85379; 85610; 87637; 93005; 99283

== ENCOUNTER → 2025-10-27 16:02 | Outpatient (BNV) | payer BC, SELFPAY | PROVIDERS: Emergency Provider Student in an Organized Health Care Education/Training Program; PCP Nurse Practitioner Family; Visit Provider Internal Medicine | DX: I44.0 Atrioventricular block, first degree (principal) | CPT/HCPCS: 93010 ==

== ENCOUNTER → 2025-10-27 18:50 | Outpatient (BNV) | payer BC, SELFPAY | PROVIDERS: Emergency Provider Student in an Organized Health Care Education/Training Program; PCP Nurse Practitioner Family; Visit Provider Student in an Organized Health Care Education/Training Program | DX: R07.9 Chest pain, unspecified (principal) | CPT/HCPCS: 71046 ==

== ENCOUNTER 2025-11-15 09:06 | Outpatient (REF) | payer BC, SELFPAY ==
--- OUTSIDE RECORDS SUMMARY | 2025-11-09 06:59 | XMS_ITS | Encounter Summary ---
Author Organization [facility] [place] [address] Care Team Providers Care Post Framer Name Role Phone Areli Hernandez MD Primary Care Provider [phone] Reason for Referral * Hospital - Outpatient (Routine) - Closed Specialty Diagnoses / Procedures Referred By Vitaliy ernst Referred To Contact Gastroenterology Diagnoses Colon cancer screening Procedures COLONOSCOPY Anesthesia - MAC; [facility] ENDOSCOPY Dennis Mccloud MD [address] [address] Phone: tel: fax: [facility] Endoscopy [address] [place] [address] Phone: tel: Referral ID Status Reason Start Date Expiration Date Visits Re quested Visits Authorized [id number] Closed 07/13/2025 07/13/2026 1 1 Reason for Visit * Auth/Cert (Routine) Specialty Diagnoses / Procedures Referred By Vitaliy ernst Referred To Contact Diagnoses Encounter for screening for malignant neoplasm of colon Procedures COLONOSCOPY MS COLONOSCOPY FLEXIBLE DIAGNOSTIC W COLLECTION SPECIMEN BRUSHING/W[facility] [id number] [place] [phone] [facility] Endoscopy [address] [place] [address] Phone: tel: Referral ID Status Reason Start Date Expiration Date Visits Re quested Visits Authorized [id number] 1 1 Encounter Details Date Type Department Care Team (Latest Contact Info) Description 11/09/2025 6:59 AM EST - 11/09/2025 11:59 PM EST Hospital Encounter [facility] Endoscopy [address] [place] [id number] Dennis Mccloud MD [address] [facility] [address] [place] [address] Michael Gunter CRNA [address] [facility] [address] [place] [address] Angel Pulido MD [address] [facility] [address] [place] [address] Colon cancer screening Discharge Disposition: Home or Self Care Social History Tobacco Use Types Packs/Day Years Used Date Smoking Tobacco: Every Day Cigarettes Smokeless Tobacco: Never Alcohol Use Standard Drinks/Week Comments Yes 0 (1 standard drink = 0.6 oz pur e alcohol) social Interpersonal Safety Answer Date Record ed Physical Abuse Unrecognized value 11/09/2025 Verbal Abuse Unrecognized value 11/09/2025 Sex and Gender Information Value Date Recorded Sex Assigned at Not on file Legal Sex Male 10:02 PM EST Gender Identity Not on file Sexual Orientation Not on file documented as of this encounter Last Filed Vital Signs Vital Sign Reading Time Taken Comments Blood Pressure 130/95 11/09/2025 8:20 AM EST Pulse 86 11/09/2025 8:20 AM EST Temperature 35.8 C (96.5 F) 11/09/2025 8:00 AM EST Respiratory Rate 16 11/09/2025 8:20 AM EST Oxygen Saturation 96% 11/09/2025 8:20 AM EST Inhaled Oxygen Concentration - - Weight 102 kg (225 lb) 11/09/2025 7:15 AM EST Height 177.8 cm (5' 10 ) 11/09/2025 7:15 AM EST Body Mass Index 32.28 11/09/2025 7:15 AM EST documented in this encounter Discharge Instructions * Attachments The following attachments cannot be sent through Care Everywhere. * Colonoscopy: Post op (Ukrainian) * Hemorrhoids (Ukrainian) documented in this encounter Medications at Time of Discharge bisacodyL (DULCOLAX) 5 mg EC tablet Take 2 tablets by mouth right before beginning bowel prep. See instructions provided by the office 2 tablet 09/07/2025 multivitamin tablet Take 1 tablet by mouth 1 (one) time each day. polyethylene glycol (Golytely) 236-22.74-6.74 -5.86 gram solution Take 4L by mouth once for one dose. May substitue any PEG. Starting at 2PM the day before your procedure drink 1 8oz glasses at your own pace until you complete half of the gallon. Finish 2nd half of the gallon at 8PM. 4000 mL 09/07/2025 rivaroxaban (XARELTO) 10 mg tablet Take by mouth every other day. ruxolitinib (Opzelura) 1.5 % cream Apply topically daily. TURMERIC ORAL Take by mouth. documented as of this encounter Discharge Disposition Disposition Code Departure Means Destination Home or Self Care documented in this encounter H&P Notes * Dennis Mccloud MD - 11/09/2025 7:45 AM EST Pre-Op Diagnosis: Colon Cancer Screening Proposed Procedure: COLONOSCOPY Performing Surgeon/MD/Endoscopist: Dennis Mccloud MD Medical/History: Medical History[1]Surgical History[2] Medications/Allergies: Prior to Admission medications Medication Sig Start Date End Date Taking? Authorizing Provider multivitamin tablet Take 1 tablet by mouth 1 (one) time each day. Yes Historical Provider, rivaroxaban (XARELTO) 10 mg tablet Take by mouth every other day. Yes Historical Provider, ruxolitinib (Opzelura) 1.5 % cream Apply topically daily. Yes Historical Provider, TURMERIC ORAL Take by mouth. Yes Historical Provider, bisacodyL (DULCOLAX) 5 mg EC tablet Take 2 tablets by mouth right before beginning bowel prep. See instructions provided by the office 09/07/25 Daphney Mena NP polyethylene glycol (Golytely) 236-22.74-6.74 -5.86 gram solution Take 4L by mouth once for one dose. May substitue any PEG. Starting at 2PM the day before your procedure drink 1 8oz glasses at your own pace until you complete half of the gallon. Finish 2nd half of the gallon at 8PM. 09/07/25 Daphney Mena NP Patient Age:45 y.o. 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 Cameron Shelley in [facility] Vitiligo DX:Vitiligo; COMMENT: follows w/ Dr. Mathis (Derm) [2] Past Surgical History: Procedure Laterality Date HERNIA REPAIR 2018 PROCEDURE: HISTORICAL HERNIA REPAIR/UMB documented in this encounter Procedure Notes * Randa Wall RN - 11/09/2025 8:18 AM EST PT GISELE ROLDAN MD SPOKE W/ PT documented in this encounter Plan of Treatment Upcoming Encounters Date Type Department Care Team (Late st Contact Info) Description 01/16/2026 2:30 PM EST Office Visit Adult [address] [phone] Areli Hernandez MD [address] [place] [address] documented as of this encounter Goals Goal Patient Goal Type Associated Problems Recent Progress Patient-Stated? Author Autogenerat ed Goal Care Plan Autogenerated Problem No Linda Tripp documented as of this encounter Procedures Procedure Name Priority Date/Time Associated Diagnosis Comments COLONOSCOPY Routine 11/09/2025 7:59 AM EST Colon cancer screening documented in this encounter Results * COLONOSCOPY Anesthesia - MAC; [facility] END[facility]COPY (11/09/2025 7:59 AM EST) Anatomical Region Laterality Modality Endoscopy 11/09/2025 7:45 AM EST Impressions 11/09/2025 8:00 AM EST - Internal hemorrhoids. - The examination was otherwise normal. - No specimens collected. Recommendation: - Discharge patient to home. - Repeat colonoscopy in 10 years for screening purposes. Narrative 11/09/2025 8:00 AM EST [facility] GI Patient Name: Gomez Perez Procedure Date: 11/09/2025 7:45 AM Date of : 1980 Age: 45 Gender: Male Note Status: Finalized Attending MD: Dennis Mccloud MD, Procedure Date No Time: 11/09/2025 Procedure: Colonoscopy Indications: Screening for colorectal malignant neoplasm Providers: Dennis Mccloud MD Referring MD: Dennis Mccloud MD Medicines: Monitored Anesthesia Care Complications: No immediate complications. Estimated blood loss: None. Estimated Blood Loss: Estimated blood loss: none. Procedure: Pre-Anesthesia Assessment: - Prior to the procedure, a History and Physical was performed, and patient medications and allergies were reviewed. The patient is competent. The risks and benefits of the procedure and the sedation options and risks were discussed with the patient. All questions were answered and informed consent was obtained. Patient identification and proposed procedure were verified by the physician, the nurse, the appliance service supervisor and the is technician in the pre-procedure area in the endoscopy suite. Mental Status Examination: alert and oriented. Airway Examination: normal oropharyngeal airway and neck mobility. Respiratory Examination: clear to auscultation. CV Examination: normal. Prophylactic Antibiotics: The patient does not require prophylactic antibiotics. Prior Anticoagulants: The patient has taken no anticoagulant or antiplatelet agents. ASA Grade Assessment: III - A patient with severe systemic disease. After reviewing the risks and benefits, the patient was deemed in satisfactory condition to undergo the procedure. The anesthesia plan was to use monitored anesthesia care (MAC). Immediately prior to administration of medications, the patient was re-assessed for adequacy to receive sedatives. The heart rate, respiratory rate, oxygen saturations, blood pressure, adequacy of pulmonary ventilation, and response to care were monitored throughout the procedure. The physical status of the patient was re-assessed after the procedure. After I obtained informed consent, the scope was passed under direct vision. Throughout the procedure, the patient's blood pressure, pulse, and oxygen saturations were monitored continuously.The Olympus Colonoscope was introduced through the anus and advanced to the cecum, identified by appendiceal orifice and ileocecal valve. The colonoscopy was performed without difficulty. The patient tolerated the procedure well. The quality of the bowel preparation was good. Findings: The perianal and digital rectal examinations were normal. Internal hemorrhoids were found during retroflexion. The hemorrhoids were Grade I (internal hemorrhoids that do not prolapse) and Grade II (internal hemorrhoids that prolapse but reduce spontaneously). The exam was otherwise without abnormality. Procedure Code(s): --- Professional --- G0121, Colorectal cancer screening; colonoscopy on individual not meeting criteria for high risk Diagnosis Code(s): --- Professional --- Z12.11, Encounter for screening for malignant neoplasm of colon CPT copyright 2020 [employer]. All rights reserved. The codes documented in this report are preliminary and upon security management specialist review may be revised to meet current compliance requirements. Dennis Mccloud MD 11/09/2025 7:59:52 AM This report has been signed electronically.Dennis Mccloud MD Number of Addenda: 0 Note Initiated On: 11/09/2025 7:45 AM Scope Withdrawal Time: 0 hours 6 minutes 5 seconds Scope In: 7:50:22 AM Scope Out: 7:58:42 AM Endoscopy Department at [facility] - [address] [place] [phone] Procedure Note Dennis Mccloud MD - 11/09/2025 [facility] GI Patient Name: Gomez Perez Procedure Date: 11/09/2025 7:45 AM Date of : 1980 Age: 45 Gender: Male Note Status: Finalized Attending MD: Dennis Mccloud MD, Procedure Date No Time: 11/09/2025 Procedure: Colonoscopy Indications: Screening for colorectal malignant neoplasm Providers: Dennis Mccloud MD Referring MD: Dennis Mccloud MD Medicines: Monitored Anesthesia Care Complications: No immediate complications. Estimated blood loss:None. Estimated Blood Loss: Estimated blood loss: none. Procedure: Pre-Anesthesia Assessment: - Prior to the procedure, a History and Physicalwas performed, and patient medications and allergieswere reviewed. The patient is competent. The risks and benefits of the procedure and the sedation optionsand risks were discussed with the patient. Allquestions were answered and informed consent was obtained. Patient identification and proposed procedure were verified by the physician, the nurse, theanesthetist and the is technician in the pre-procedure area in the endoscopy suite. Mental Status Examination: alertand oriented. Airway Examination: normal oropharyngeal airway and neck mobility. Respiratory Examination: clear to auscultation. CV Examination: normal. Prophylactic Antibiotics: The patient does notrequire prophylactic antibiotics. Prior Anticoagulants: The patient has taken no anticoagulant or antiplatelet agents. ASA Grade Assessment: III - A patient with severe systemic disease. After reviewing the risksand benefits, the patient was deemed in satisfactory condition to undergo the procedure. The anesthesia plan was to use monitored anesthesia care (MAC). Immediately prior to administration of medications, the patient was re-assessed for adequacy to receive sedatives. The heart rate, respiratory rate, oxygen saturations, blood pressure, adequacy of pulmonary ventilation, and response to care were monitored throughout the procedure. The physical status ofthe patient was re-assessed after the procedure. After I obtained informed consent, the scope was passed under direct vision. Throughout theprocedure, the patient's blood pressure, pulse, and oxygen saturations were monitored continuously.The Olympus Colonoscope was introduced through the anus and advanced to the cecum, identified by appendiceal orifice and ileocecal valve. The colonoscopy was performed without difficulty. The patient tolerated the procedure well. The quality of the bowel preparation was good. Findings: The perianal and digital rectal examinations were normal. Internal hemorrhoids were found duringretroflexion. The hemorrhoids were Grade I (internal hemorrhoids that do not prolapse) and Grade II (internal hemorrhoids that prolapse but reducespontaneously). The exam was otherwise without abnormality. Procedure Code(s): --- Professional --- G0121, Colorectal cancer screening; colonoscopy on individual not meeting criteria for high risk Diagnosis Code(s): --- Professional --- Z12.11, Encounter for screening for malignantneoplasm of colon CPT copyright 2020 [employer]. All rights reserved. The codes documented in this report are preliminary and upon security management specialist reviewmay be revised to meet current compliance requirements. Dennis Mccloud MD 11/09/2025 7:59:52 AM This report has been signed electronically.Dennis Mccloud MD Number of Addenda: 0 Note Initiated On: 11/09/2025 7:45 AM Scope Withdrawal Time: 0 hours 6 minutes 5 seconds Scope In: 7:50:22 AM Scope Out: 7:58:42 AM Endoscopy Department at [facility] - [address] [place] [phone] IMPRESSION: - Internal hemorrhoids. - The examination was otherwise normal. - No specimens collected. Recommendation: - Discharge patient to home. - Repeat colonoscopy in 10 years for screening purposes. us Dennis Mccloud MD GI~PROCEDURE ORDERABLES Fin al Result documented in this encounter Visit Diagnoses Diagnosis Colon cancer screening Special screening for malignant neoplasms, colon documented in this encounter Discontinued Medications Medication Sig Discontinue Reason Start Date End Da te nicotine (NICODERM CQ) 7 mg/[address] 1 patch on the skin 1 (one) time each day at the same time. Therapy completed 10/03/2025 11/02/2025 documented as of this encounter Historical Medications * This list may reflect changes made after this encounter. multivitamin tablet Take 1 tablet by mouth 1 (one) time each day. TURMERIC ORAL Take by mouth. added in this encounter Additional Health Concerns Active Problems Noted Date Diagnosed Date Autogenerated Problem 08/23/2025 documented as of this encounter Care Teams Post Framer Relationship Specialty Start Date End Date Areli Hernandez MD [address] [place] [phone] PCP - General Internal Medicine 07/13/25 documented as of this encounter
--- NOTE | ~2025-11-15 | US_ITS ---
EXAMINATION: US TRIPLEX LOWER EXTREMITY, LEFT CLINICAL INFORMATION: FOLLOW DVT COMPARISON: Ultrasound 10/14/2024 TECHNIQUE: Color-flow triplex imaging with spectral analysis and compression Doppler were performed on the left lower extremity. FINDINGS: Chronic peripheral postthrombotic changes are again seen in the popliteal vein and the distal superficial femoral vein. There is recanalized patent color flow with normal duplex venous waveforms. The common femoral vein, greater saphenous vein, and the proximal and mid femoral vein demonstrate normal compressibility, color flow and duplex venous waveforms. Popliteal vein and midcalf peroneal and posterior tibial venous segments are patent and show no evidence of deep vein thrombosis. There is no Munguia's cyst. US/US venous duplex LE LT IMPRESSION: Chronic postthrombotic changes in the left popliteal vein and the distal most superficial femoral vein. Findings similar to previous. No evidence of acute deep venous thrombosis. Electronically signed by: Mac Rojo MD 11/15/2025 10:35 AM [facility]
--- OUTSIDE RECORDS SUMMARY | 2025-11-15 09:11 | XMS_ITS | Clinical Summary ---
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 Active ruxolitinib (Opzelura) 1.5 % cream Apply topically daily. Active bisacodyL (DULCOLAX) 5 mg EC tablet Take 2 tablets by mouth right before beginning bowel prep. See instructions provided by the office 2 tablet 5 Active polyethylene glycol (Golytely) 236-22.74-6.74 -5.86 gram solution Take 4L by mouth once for one dose. May substitue any PEG. Starting at 2PM the day before your procedure drink 1 8oz glasses at your own pace until you complete half of the gallon. Finish 2nd half of the gallon at 8PM. 4000 mL 5 Active TURMERIC ORAL Take by mouth. A ctive multivitamin tablet Take 1 tablet by mouth 1 (one) time each day. Active nicotine (NICODERM CQ) 7 mg/[address] 1 patch on the skin 1 (one) time each day at the same time. 30 each 5 025 Discontin ued(Thera py completed ) Active Problems Problem Noted Date Diagnosed Date Hyperlipidemia 07/12/2025 Vitiligo 07/12/2025 Overview (07/12/2025): [facility] Deep vein thrombosis (DVT) of left lower extremi ty 07/12/2025 Factor 5 Leiden mutation, heterozygous 3 Overview (07/12/2025): Dr. Barnes Encounters Date Type Department Care Team Description 11/09/2025 7:46 AM EST Anesthesia Event [facility] Endoscopy [address] [place] [phone] Angel Pulido MD 11/09/2025 6:59 AM EST - 11/09/2025 11:59 PM EST Hospital Encounter [facility] [address] [place] [phone] Dennis Mccloud MD Steele, Matthew G, CRNA Gomes, Sheldon B, MD Colon cancer screening Discharge Disposition: Home or Self Care 10/24/2025 Telephone Gastroenterology - [address] [place] [phone] Vicki Multani [place] 09/13/2025 Telephone Gastroenterology - [place] [address] [phone] Dennis Mccloud MD 08/28/2025 Telephone Gastroenterology - [address] [facility] [address] [place] [phone] Vicki Multani [place] 08/22/2025 Telephone Gastroenterology - [place] [address] [phone] Dennis Mccloud MD from Last 3 Months Immunizations Immunization Administration Dates Next Due Tdap Tetanus diptheria acell ular pertussis (Boostrix; Adacel) 7yo and older 10/29/2021 Surgical History Surgery Date Site/Laterality Comments HERNIA REPAIR 2019 PROCEDURE: HISTORICAL HERNIA REPAIR/UMB Medical History Medical History Date Comments History of DVT (deep vein thrombosis) DX:History of DVT (deep vein thrombosis); COMMENT: Factor 5, follows w/ Dr. Barnes Heme in [facility] Vitiligo DX:Vitiligo; COM MENT: follows w/ Dr. Mathis (Derm) Family History Medical History Relation Name Comments No Known Problems Brother 1 No Known Problems Brother 2 Lung cancer Father Lung cancer Maternal Grandfather Hypertension Mother Pancreatic cancer Paternal Grandfather Heart attack Paternal Grandmother No Known Problems Sister 1 Other: DVT Sister 2 Other: lupus Sister 2 Other: Down's Syndrome Sister 3 Relation Name Status Comments Brother 1 Brother 2 Alive Father Maternal Grandfather Maternal Grandmother Mother Alive Paternal Grandfather Paternal Grandmother Sister 1 Sister 2 Alive Sister 3 Alive Social History Tobacco Use Types Packs/Day Years Used Date Smoking Tobacco: Every Day Cigarettes Smokeless Tobacco: Never Tobacco Cessation:Ready to Q uit: Not Asked; Counseling Given: Not Answered Alcohol Use Standard Drinks/Week Comments Yes 0 (1 standard drink = 0.6 oz pur e alcohol) social Interpersonal Safety Answer Date Record ed Physical Abuse Unrecognized value 11/09/2025 Verbal Abuse Unrecognized value 11/09/2025 Sex and Gender Information Value Date Recorded Sex Assigned at Not on file Legal Sex Male 10:02 PM EST Gender Identity Not on file Sexual Orientation Not on file Last Filed Vital Signs Vital Sign Reading [...] Mass Index 32.28 11/09/2025 7:15 AM EST Plan of Treatment Upcoming Encounters Date Type Department Care Team (Late st Contact Info) Description 01/16/2026 2:30 PM EST Office Visit Adult Medicine [address] [phone] Areli Hernandez MD [address] [place] [address] Health Maintenance Due Date Last Done Comments Hepatitis B Vaccines (1 of 3 - 19+ 3-dose series) 1999 Pneumococcal Vaccine: Pediatrics (0 to 5 Years) and At-Risk Patients (6 to 49 Years) (1 of 2 - PCV) 1999 HPV Vaccines (1 - 3-dose SCD M series) 2007 HIV Screening 10/25/2022 Hepatitis C Screening 10/25/2022 Social Influencers of Health Screening 10/25/2022 Depression Screening 11/23/2024 01/29/2024 Influenza Vaccine (#1) 2025 Cholesterol Screening (Lipid Panel) 04/25/2029 04/25/2024, 04/25/2024 DTaP,Tdap,and Td Vaccines (2 - Td or Tdap) 10/29/2031 10/29/2021 Colorectal Cancer Screening: Colonoscopy 11/09/2035 11/09/2025 RSV Immunization Adult Patients (1 - 1-dose 75+ series) 2055 COVID-19 Vaccine Discontinued HIB Vaccines Aged Out No longer eligi ble based on patient's age to complete this topic Hepatitis A Vaccines Aged Out No long er eligible based on patient's age to complete this topic IPV Vaccines Aged Out No longer eligi ble based on patient's age to complete this topic MMR Vaccines Aged Out No longer eligi ble based on patient's age to complete this topic Meningococcal ACWY Vaccine Aged Out N o longer eligible based on patient's age to complete this topic Meningococcal B Vaccine Aged Out No l onger eligible based on patient's age to complete this topic RSV Immunization Patients Under 20 months Aged Out No longer eligible based on patient's age to complete this topic Varicella Vaccines Aged Out No longer eligible based on patient's age to complete this topic Goals Goal Patient Goal Type Associated Problems Recent Progress Patient-Stated? Author Autogenerat ed Goal Care Plan Autogenerated Problem No Linda Tripp Procedures Procedure Name Priority Date/Time Associated Diagnosis Comments COLONOSCOPY Routine 11/09/2025 7:59 AM EST Colon cancer screening LIPID PANEL Routine 04/25/2024 HM DEPRESSION SCREENING Routine 01/29/2024 from Last 3 Months or Most Recently Relevant to Health Maintenance Results * COLONOSCOPY Anesthesia - MAC; [facility] ENDOSCOPY (11/09/2025 7:59 AM EST) Anatomical Region Laterality Modality Endoscopy 11/09/2025 7:45 AM EST Impressions 11/09/2025 8:00 AM EST - Internal hemorrhoids. - The examination was otherwise normal. - No specimens collected. Recommendation: - Discharge patient to home. - Repeat colonoscopy in 10 years for screening purposes. Narrative 11/09/2025 8:00 AM EST [facility] GI Patient Name: Gomez Perez Procedure Date: [...] verified by the physician, the nurse, the seamer and the service technician in the pre-procedure area in the [...] malignant neoplasm of colon CPT copyright 2020 [employer]. All rights reserved. The codes documented in this report are preliminary and upon instructional specialist review may be revised to meet current compliance requirements. Dennis Mccloud MD 11/09/2025 7:59:52 AM This report has been signed electronically.Dennis Mccloud MD Number of Addenda: 0 Note Initiated On: 11/09/2025 7:45 AM Scope Withdrawal Time: 0 hours 6 minutes 5 seconds Scope In: 7:50:22 AM Scope Out: 7:58:42 AM Endoscopy Department at [facility] - [address] [place] [phone] Procedure Note Dennis Mccloud MD - 11/09/2025 [facility] GI Patient Name: Gomez Perez Procedure Date: [...] the physician, the nurse, theanesthetist and the service technician in the pre-procedure area in the [...] for malignantneoplasm of colon CPT copyright 2020 [employer]. All rights reserved. The codes documented in this report are preliminary and upon instructional specialist reviewmay be revised to meet current compliance requirements. Dennis Mccloud MD 11/09/2025 7:59:52 AM This report has been signed electronically.Dennis Mccloud MD Number of Addenda: 0 Note Initiated On: 11/09/2025 7:45 AM Scope Withdrawal Time: 0 hours 6 minutes 5 seconds Scope In: 7:50:22 AM Scope Out: 7:58:42 AM Endoscopy Department at [facility] - [address] [place] [phone] IMPRESSION: - Internal hemorrhoids. - The examination was otherwise normal. - No specimens collected. Recommendation: - Discharge patient to home. - Repeat colonoscopy in 10 years for screening purposes. Dennis Mccloud MD GI~PROCEDURE ORDERABLES Fin al Result * (ABNORMAL) Lipid panel (04/25/2024) LDL/HDL Ratio 5(A) 0 - 4 Triglycerides 498(A) 0 - 150 mg/dL Cholesterol 222(A) 0 - 200 mg/dL HDL 42 >=40 mg/dL LDL Cholesterol 81 0 - 100 mg/dL Blood Venous blood specimen / Unknown Historical Provider LAB BLOOD ORDERABLES Beryl l Result * Depression Screening (01/29/2024) Pathologist [facility] Depression Screening abstracted Historical Provider HEALTH MAINTENANCE Final Result from Last 3 Months or Most Recently Relevant to Health Maintenance Additional Health Concerns Active Problems Noted Date Diagnosed Date Autogenerated Problem 08/23/2025 Insurance [facility] Care Teams Faa Certified Powerplant Mechanic Relationship Specialty Start Date End Date Areli Hernandez MD [address] [place] [phone] PCP - General Internal Medicine 07/13/25
== END 2025-11-15 09:07 | disposition home or self-care (01) ==
LOC: HO.US 09:06
PROVIDERS: PCP Internal Medicine; Visit Provider Internal Medicine Medical Oncology
DX: I82.402 Acute embolism and thrombosis of unspecified deep veins of left lower extremity (principal)
CPT/HCPCS: 93971

== ENCOUNTER → 2025-11-15 09:07 | Outpatient (BNV) | payer BC, SELFPAY | PROVIDERS: PCP Internal Medicine; Visit Provider Radiology Diagnostic Ultrasound | DX: Z03.89 Encounter for observation for other suspected diseases and conditions ruled out (principal) | CPT/HCPCS: 93971 ==